=== PATIENT | female | born 1975 | race Caucasian/White ===

== ENCOUNTER → 2025-03-17 06:26 | Day surgery (SDC) | payer OTHER, SELFPAY | LOC: GI 06:26 | PROVIDERS: ATTENDING PHYSICIAN Internal Medicine Gastroenterology | DX: K62.5 Hemorrhage of anus and rectum (principal); K31.7 Polyp of stomach and duodenum; R12 Heartburn | CPT/HCPCS: 45378; 43239; 88305 ==